=== PATIENT | female | born 1990 | race Caucasian/White ===

== ENCOUNTER 2019-01-13 17:13 | Emergency (ER) | payer SELFPAY ==
[~2019-01-13] VITALS: Ht 162.6 cm; Wt 81.8 kg
[2019-01-13 17:36] VITALS: Ht 162.6 cm; Wt 81.8 kg
[2019-01-13 20:23] VITALS: BP 135/111
== END 2019-01-13 20:23 | disposition home or self-care (01) ==
LOC: D.ER 17:13
DX: G43.909 Migraine, unspecified, not intractable, without status migrainosus (principal); I10 Essential (primary) hypertension; E16.2 Hypoglycemia, unspecified